=== PATIENT | female | born 1930 | race Caucasian/White ===

== ENCOUNTER 2017-02-16 16:57 | Observation (INO) | payer MEDICARE, OTHER ==
[~2017-02-16] VITALS: Ht 157.5 cm; Wt 56.0 kg
--- NOTE | ~2017-02-16 | CN ---
Consultation Report [facility] [address] [place]. [address] NAME: JÚNIOR MANLEY : [birth year] STATUS : ADM Pre[facility]i PAT#: [id number] AGE: 87 ADM/REG DATE : 02/16/17 MR#: [id number] REPORT SERV DATE: 02/17/17 DICTATED BY: AZAEL PENG DATE: 02/17/17 REPORT STATUS : Draft TRANSCRIBED BY: MODL DATE: 02/17/17 CARDIOVASCULAR CONSULTATION DATE OF CONSULTATION: 02/17/2017 INDICATION: Near syncope/syncope. HISTORY OF PRESENT ILLNESS: Ms. Manley is an 87-year-old woman with a history of coronary artery disease and prior bypass surgery. She has a history of bioprosthetic aortic valve. She has a history of paroxysmal atrial fibrillation and sinus rhythm, on Multaq. She has refused on multiple occasions to take long-term anticoagulation with Coumadin or NOAC despite her elevated CHADS score. The patient at baseline is a poor historian. She evidently had a near syncopal event after getting up to go to the bathroom. When she was going back to bed, she felt very weak and sort of slid to the floor. She does not have any injury in falling. It is not clear to me that she actually passed out, but just became weak. Her evaluation in the emergency room is notable for a borderline elevated troponin, which is not elevated on serial checks. Her EKG shows sinus rhythm with an incomplete left bundle branch block, but no evidence of AV block. PAST MEDICAL HISTORY: 1. Coronary artery disease, status post bypass surgery in 2009, last cardiac catheterization in 2011 with patent grafts, last stress test in 2014. No ischemia. 2. Bioprosthetic aortic valve with last echocardiogram in 2012. 3. Carotid artery stenosis, status post left carotid endarterectomy, chronically occluded right carotid followed at [facility]. 4. History of TIA/stroke. 5. Hypertension. 6. Hypercholesterolemia. 7. Paroxysmal atrial fibrillation after bypass surgery. She has been maintaining sinus, on Multaq. She is resistant to taking long-term Coumadin or NOAC. 8. Renal insufficiency, status post renal artery stenting. SOCIAL HISTORY: She does not smoke or drink alcohol. FAMILY HISTORY: There is no family history of early coronary artery disease. REVIEW OF SYSTEMS: A complete review of systems was obtained as best as could be obtained from the patient given her level of dementia. ALLERGIES: INCLUDE PENICILLIN, METOPROLOL CAUSING STOMACH UPSET, CODEINE, AND COLCHICINE CAUSING NAUSEA AND VOMITING. Consultation Report [facility] [facility] [address]. [address] NAME: JÚNIOR MANLEY : [birth year] STATUS : ADM Preethi PAT#: [id number] AGE: 87 ADM/REG DATE : 02/16/17 MR#: [id number] REPORT SERV DATE: 02/17/17 DICTATED BY: AZAEL PENG DATE: 02/17/17 REPORT STATUS : Draft TRANSCRIBED BY: AROLDO DATE: 02/17/17 MEDICATIONS: Include Norvasc 5 mg daily, Lipitor 20 mg daily, Pepto-Bismol, multivitamins, Multaq 400 mg twice a day, Cymbalta, Uloric, Synthroid, Zestril 20 mg daily, Amitiza, magnesium oxide, Protonix, prednisone eye drops, Zantac, thiamine, and Ultram. PHYSICAL EXAMINATION: VITAL SIGNS: Blood pressure 140/65, heart rate of 78, and respiratory rate of 14. GENERAL: Comfortable in no acute distress. HEENT: Anicteric. No xanthelasma. Lips without cyanosis. NECK: No JVD. Carotids 2+ and symmetric. No carotid bruits. LUNGS: CTA bilaterally. No wheezes or rhonchi. No accessory muscle use. COR: RRR. Normally placed PMI. Normal S1 and S2. No murmurs, rubs or gallops. ABD: Soft, nontender, nondistended. Normal bowel sounds. No abdominal bruits. EXT: No clubbing, cyanosis or edema 2+ and symmetric distal pulses. SKIN: Warm. Dry. No venous stasis changes. MS: No kyphosis. NEURO/PSYCH: Oriented x3. No anxiety or depression. DATA: Laboratory studies: Potassium of 3.9, creatinine of 1.67. Hematocrit of 36. Troponin of 0.05 and 0.08. BNP of 269. EKG: A 12-lead EKG shows sinus rhythm at 69 beats per minute. There is an incomplete left bundle-branch block pattern noted. No evidence of AV block. I reviewed telemetry strips which predominantly show sinus rhythm without evidence of bradycardia overnight. IMPRESSION: This is a near syncopal event in this 87-year-old woman with a history of paroxysmal atrial fibrillation. Given the setting around the time of the patient going to the bathroom and given the limits of her poor history, I think this is likely vasovagal in nature. There has been no evidence of AV block or bradycardia on the monitor. I agree with plans to check an echocardiogram. I think her mildly elevated troponin is consistent with demand ischemia, but not an acute myocardial infarction or [id number]-SA-[id number] elevation myocardial infarction. PLAN: I plan conservative treatment at this point. We could consider an outpatient Holter monitor depending on her inpatient course. AURELIO/AROLDO Azael Peng M.D. / [id number] Consultation Report [address] [place]. [address] NAME: JÚNIOR MANLEY : [birth year] STATUS : ADM [facility] PAT#: [id number] AGE: 87 ADM/REG DATE : 02/16/17 MR#: [id number] REPORT SERV DATE: 02/17/17 DICTATED BY: AZAEL PENG DATE: 02/17/17 REPORT STATUS : Draft TRANSCRIBED BY: AROLDO DATE: 02/17/17 CC: Hien Monahan M.D.
--- NOTE | ~2017-02-16 | DS ---
Discharge Summary [facility] [address] [place]. [address] NAME: JÚNIOR SIDDIQI : [birth year] STATUS : DIS [facility] PAT#: [id number] AGE: 87 ADM/REG DATE : 02/16/17 MR#: [id number] REPORT SERV DATE: 02/19/17 DICTATED BY: NIMESH NAVARRETE DATE: 02/18/17 REPORT STATUS : Draft TRANSCRIBED BY: MODVenancio DATE: 02/18/17 ADMISSION DATE: 02/16/2017 DISCHARGE DATE: 02/18/2017 FINAL DIAGNOSES: 1. Presyncope. 2. Coronary artery disease with history of coronary artery bypass graft. 3. Demand ischemia. 4. Paroxysmal atrial fibrillation and nonsustained ventricular tachycardia. 5. Hypertension. 6. Bioprosthetic aortic valve replacement. 7. Peripheral arterial disease with history of left CA and RA stent. 8. Chronic kidney disease, 3. 9. Hypothyroidism. 10.History of gout. DIAGNOSTIC EXAM: Echocardiogram showing normal left ventricular size and systolic function. EF of 50-55%. No regional wall motion abnormalities. Mild concentric LVH. Mild diastolic dysfunction. Normal right ventricular size and systolic function, mild left atrial enlargement. No thrombus. Stable aortic valve bioprosthesis with mean pressure gradient of 10 mmHg. Chest x-ray: No acute process, no change. HOSPITAL COURSE: Please refer to the H and P done by Dr. Tapia dated on 02/16/2017. Briefly, this is an 87-year-old female who comes in for dizziness. The patient went to the bathroom, then came back, felt like passing out. She did not actually pass out. She was able to lie down on her bed. The patient then went to the emergency room where there was a question that the EMS saw some PVCs versus atrial flutter. The patient in the emergency room was seeing normal sinus rhythm. The patient was then admitted. We did the above tests. We got Dr. Gao, who knows her to consult. The patient meanwhile was also found to have an elevated creatinine at 1.73. We stopped the lisinopril, hydrated her and that improved to a creatinine of 1.25 on discharge. The patient right now feels better. Denies any dizziness, and there was no syncopal episode. Telemetry shows a 5-beat run of nonsustained ventricular tachycardia. Upon discussion with Dr. Azael Gao, the patient will be requiring outpatient Holter, but is safe to be discharged. The patient will now be discharged with the above diagnosis. She is going to be on the following medications: 1. Norvasc 5 mg a day. 2. Aspirin 325 mg a day. 3. Lipitor 20 mg at bedtime. 4. Vitamin D 5000 units a day. 5. Multaq 400 mg twice a day. 6. Cymbalta 30 mg a day. 7. Zantac 300 mg a day. Discharge Summary [facility] [address] [place]. [address] NAME: JÚNIOR SIDDIQI : [birth year] STATUS : DIS Preethi PAT#: [id number] AGE: 87 ADM/REG DATE : 02/16/17 MR#: [id number] REPORT SERV DATE: 02/19/17 DICTATED BY: NIMESH NAVARRETE. DATE: 02/18/17 REPORT STATUS : Draft TRANSCRIBED BY: AORLDO DATE: 02/18/17 8. Uloric 40 mg a day. 9. Synthroid 50 mcg a day. 10.Amitiza 24 mcg twice a day. 11.Protonix 40 mg a day. 12.Pred Forte 1% ophthalmic solution both eyes. 13.Thiamine 100 mg a day. 14.Ultram p.r.n. 15.Magnesium oxide 400 mg twice a day. 16.She will be off lisinopril. The patient will follow up with Sixto Nicolas M.D. in one to two weeks and follow up with Azael Gao M.D. in four to six weeks. This has been explained to the patient, she agreed and understood the plan. [place]/AROLDO Nimesh Navarrete M.D. / [id number] CC: Hien Monahan M.D.
--- NOTE | ~2017-02-16 | HP ---
History And Physical [place] [facility] [id number] [facility] [place]. [address] NAME: JÚNIOR SIDDIQI : [birth year] STATUS : ADM Pre[facility]i PAT#: [id number] AGE: 87 ADM/REG DATE : 02/16/17 MR#: [id number] REPORT SERV DATE: 02/16/17 DICTATED BY: SILVIA LOVELACE DATE: 02/16/17 REPORT STATUS : Draft TRANSCRIBED BY: MODVenancio DATE: 02/16/17 DATE OF ADMISSION: 02/16/2017 HISTORY OF PRESENT ILLNESS: The patient is an extremely pleasant 87-year-old female who presented to [facility] Emergency Room with a complaint of dizziness and presyncopal episode. The patient reported that she basically was in bed, then she got up to go to the bathroom, and then she came back and she said "I am passing out," got dizzy, and basically lied down on the bed. She also said that she did not have any chest pain, she just had a tingling-type sensation in her epigastric area in the middle of her chest, but she denies any chest pain. She denies any abdominal pain. No shortness of breath. No fever. No rash. No headaches. All 14-point review of systems done and negative except for what is stated in the history of present illness. Now, the patient is feeling better. She does not have any tingling sensation in the middle of her chest. In the emergency room, she received normal saline, 150 mL/h, for the last one hour, and she said that she is feeling weak. Also, according to ambulance records, she had sinus tachycardia with some premature ventricular contractions, and basically on further review it looks more like atrial fibrillation, and she had also premature ventricular contractions versus atrial flutter. In the emergency room, the patient converted to sinus rhythm. She was still having occasional premature ventricular contractions. PAST MEDICAL HISTORY: Past medical history is extensive and was collected from medical records. She has history of heart palpitations and fluttering as well as she has history of coronary artery disease, status post coronary artery bypass grafting x4 with aortic valve replacement in 2003; history of paroxysmal atrial fibrillation, on baby aspirin; history of hypertension; dyslipidemia; history of carotid artery stenosis, status post left carotid endarterectomy with chronic occlusion of the right carotid artery; history of renal artery stenosis with stent per [facility]; peripheral vascular disease with previous iliac stents; history of TIA and CVA in the past; history of osteoarthritis and osteoporosis; deconditioning; gout; history of hypothyroidism; dyslipidemia; degenerative disk disease; and chronic lower back pain. PAST SURGICAL HISTORY: As I dictated above, history of coronary artery bypass grafting x4 with aortic valve replacement, history of left carotid endarterectomy, bilateral cataract repair, stents as previously mentioned in bilateral common iliac arteries, and bilateral renal artery stenosis. ALLERGIES: SHE IS ALLERGIC TO SULFA, CODEINE, COLCHICINE, AND METOPROLOL. MEDICATIONS: Home medications are being reviewed by pharmacy, and after clarification of home medications by pharmacy, I am going to address her home medication list. It was written on the previous records that the patient is not on chronic anticoagulation with Coumadin and she takes only baby aspirin, but the pharmacy is going to clarify this. SOCIAL HISTORY: She lives with her younger sister who takes care of her medications; currently, she is not at the bedside. We tried to call her, but she is now driving home. The patient denies tobacco use. No alcohol. No recreational drug use. History And Physical [address] [address] NAME: JÚNIOR SIDDIQI : [birth year] STATUS : ADM Preethi PAT#: [id number] AGE: 87 ADM/REG DATE : 02/16/17 MR#: [id number] REPORT SERV DATE: 02/16/17 DICTATED BY: SILVIA LOVELACE DATE: 02/16/17 REPORT STATUS : Draft TRANSCRIBED BY: MODVenancio DATE: 02/16/17 FAMILY HISTORY: Significant for hypertension and coronary artery disease. Her mother at the age of 56 from heart problems. The father at the age of 37, he was a raise miner, from lung problems. REVIEW OF SYSTEMS: All 14-point review of systems done and negative except for what is stated in the history of present illness. PHYSICAL EXAMINATION: GENERAL: A well-nourished, well-developed female not in acute distress, resting quietly. VITAL SIGNS: Blood pressure 179/72, temperature 97.9, heart rate 61, respiratory rate 16, and oxygen saturation 98% on room air. HEENT: Head atraumatic and normocephalic. Conjunctivae clear. Pupils are equal and reactive to light and accommodation. Extraocular muscles are intact. NECK: Supple. Trachea is midline. No supraclavicular or cervical lymphadenopathy. LUNGS: Clear to auscultation bilaterally. Normal respiratory effort. CARDIOVASCULAR SYSTEM: Regular rate and rhythm. Point of maximal impulse not displaced. I can hear a click of the aortic valve. ABDOMEN: Soft, nontender, and nondistended. Positive normoactive bowel sounds. EXTREMITIES: No clubbing or cyanosis. No edema. There are some brownish changes on the skin of the lower legs. The patient has normal 2+ pedal pulses on both feet. LABORATORY RESULTS: Her sodium was 141, potassium 4.5, chloride 105, carbon dioxide 30, BUN 26, creatinine 1.73, blood sugar 108, magnesium 2.7, and troponin 0.05. Her baseline creatinine fluctuates from 1.2 to 1.3. White count 12.9, hemoglobin 12.4, hematocrit 37.9, and platelet count 214. PT 47.1. INR 1.2. Chest x-ray showed cardiomegaly. Otherwise, no acute cardiopulmonary abnormality, personally reviewed by me. Official radiology report is pending. EKG with normal sinus rhythm with sinus arrhythmia with occasional premature ventricular contractions, left axis deviation, incomplete right bundle-branch block with a ventricular rate of 69. In comparison with the previous EKG which was done in 01/2015, it looks same. ASSESSMENT: 1. This is a very pleasant 87-year-old female who presented status post presyncopal episode with evidence of arrhythmia, looks like atrial flutter/fibrillation with premature ventricular contractions, eventually converted to normal sinus rhythm. 2. Mild dehydration with prerenal azotemia and mild acute kidney injury. 3. Leukocytosis, being afebrile, question possible urinary infection, check urinalysis. 4. History of congestive heart failure with diastolic dysfunction, check echocardiogram. 5. Minimally elevated troponin, check serial troponins. 6. History of carotid artery stenosis on the left, status post carotid endarterectomy, and chronic carotid occlusion on the right. 7. History of aortic valve replacement with history of coronary artery bypass grafting. 8. Possible mild cognitive impairment. History And Physical [address] [place]. [address] NAME: JÚNIOR SIDDIQI : [birth year] STATUS : ADM [facility] PAT#: [id number] AGE: 87 ADM/REG DATE : 02/16/17 MR#: [id number] REPORT SERV DATE: 02/16/17 DICTATED BY: SILVIA LOVELACE DATE: 02/16/17 REPORT STATUS : Draft TRANSCRIBED BY: AROLDO DATE: 02/16/17 PLAN: 1. Admit the patient to cardiac telemetry under observation status. We will monitor her cardiac troponins and order echocardiogram. We will ask the video game designer to evaluate her for arrhythmia, put her on electrolyte protocol, and replace electrolytes if needed; currently, they are in normal range. 2. Leukocytosis without fever, question if this is just stress leukocytosis from dehydration and syncopal episode versus possible UTI. I will order urinalysis on this patient. 3. An echocardiogram also is ordered for the evaluation of the arrhythmia. Thyroid studies are ordered. The patient will receive gentle IV fluid hydration for eight hours, and my partner will see this patient starting tomorrow morning as well as pharmacy will give me her home medications to address. /AROLDO Silvia Lovelace M.D. / [id number] CC: Hien Sesay M.D.
[~2017-02-16 16:57] MED LIST: ASAB PO; ATEN50 PO; B COMPLETE PO; B COMPLEX PO; CARTIA XT120 MG/24 PO; CLONAZEPAM; CORDARONE PO; CYMBALTA30 PO; DCN100 PO; DRONED400 PO; DSS PO; HALF81 PO; HEMATINIC PL PO; KLONO5 PO; KLOR-CON 1010 MEQ PO; KLOR-CON20 MEQ PO; L40 PO; L80 PO; LEVOTHYROXIN50 MCG PO; LIPITOR20 PO; LOP25 PO; LOP50 PO; LOTREL1 CA1 PO; MAGOX4 PO; MOBIC7.5 PO; MULTIPLE VIT PO; NITROSTAT0.4 MG SL; NORV25 PO; NORV5 PO; PEP20 PO; PRILOSEC40 MG PO; PRIN10 PO; PRIN20 PO; PROCRIT40 SC; PROTONIX PO; REFRES1 OP; REFRESH PLUS O0.4 ML OPH; REFRESH1 % OPH; SUCR PO; ULORIC; ULORIC40 MG PO; ULTRAM 50 MG PO; ULTRAM50 PO; VITAMIN B-1 PO; VITAMIN B-100 PO; VITAMIN D1000 UNI1 PO; VITAMIN D31000 UNIT PO; VITD PO; VYTORIN 10/20 T1 TAB PO; VYTORIN 10/40 T1 TAB PO; VYTORIN 10/80 T1 TAB PO; X25 PO; Z100 PO; ZANTAC150 MG PO; ZANTAC300 MG PO; [UNRECOGNIZED DRUG - OTHER] OP; [UNRECOGNIZED DRUG - OTHER] PO
[2017-02-16 20:22] LABS: BASOPHILS 0.2 %; BASOPHILS ABSOLUTE 0.03 10/3/uL (0.0-0.16); EOSINOPHILS 0.2 %; EOSINOPHILS ABSOLUTE 0.03 10/3/uL (0.0-0.53); ER CBC TAT 0 Hrs 03 Mins; HEMATOCRIT 37.9 % (36.0-48.0); HEMOGLOBIN 12.4 g/dL (12.0-16.0); IMMATURE GRANULOCYTES 0.2 %; IMMATURE GRANULOCYTES ABSOLUTE 0.03 10/3/uL (0.0-0.11); LYMPHOCYTES 5.9 %; LYMPHOCYTES ABSOLUTE 0.76 10/3/uL (0.67-4.30); MANUAL DIFF NO %; MEAN CORPUS HGB CONC 32.7 g/dL (32.0-36.0); MEAN CORPUSCULAR HEMOGLOB 30.7 pg (26.0-34.0); MEAN CORPUSCULAR VOLUME 93.8 fL (80-100); MEAN PLATELET VOLUME 8.7 fL (9.2-13.0); MONOCYTES 6.4 %; MONOCYTES ABSOLUTE 0.82 10/3/uL (0.21-1.20); NEUTROPHILS 87.1 %; NEUTROPHILS ABSOLUTE 11.19 10/3/uL (2.02-8.40); PLATELET COUNT 214 10/3/uL (150-400); RBC DISTRIBUTION WIDTH 15.1 % (12.0-16.0); RED CELL COUNT 4.04 10/6/uL (4.0-5.6); WHITE BLOOD CELLS 12.9 10/3/uL (4.5-10.5)
[2017-02-16 20:31] LABS: INTERNATIONAL NORMAL RATI 1.2 UNITS (-); PROTIME (NOT ORD) 14.7 SEC (12.0-14.5)
[2017-02-16 20:32] LABS: PARTIAL THROMBO TIME 34.1 SEC (22.5-37.2)
[2017-02-16 20:38] LABS: BUN (BLOOD UREA NITROGEN) 26 MG/DL (6-23); CALCIUM, SERUM 8.8 MG/DL (8.5-10.4); CHLORIDE, SERUM 105 MMOL/L (96-112); CO2 (CARBON DIOXIDE) 30 MMOL/L (24-34); CREATININE 1.73 MG/DL (0.55-1.02); GFR AFRICAN AMERICAN 30 ML/MIN (>=60); GFR NON AFRICAN AMERICAN 26 ML/MIN (>=60); POTASSIUM, SERUM 4.5 MMOL/L (3.5-5.3); SODIUM, SERUM 141 MMOL/L (135-148)
[2017-02-16 20:39] LABS: CHEST PAIN PROFILE TAT 0 Hrs 20 Mins; GLUCOSE, SERUM 108 MG/DL (60-99); TROPONIN I 0.05 NG/ML (<0.05)
[2017-02-16] MEDS ORDERED: LIPITOR20 PO (21:24)
[2017-02-16] MEDS ORDERED: AMITIZA24 PO (21:24)
[2017-02-16] MEDS ORDERED: PREDFORTE OPH (21:25)
[2017-02-16] MEDS ORDERED: PROTONIX PO (21:25)
[2017-02-16] MEDS ORDERED: DRONED400 PO (21:25)
[2017-02-16] MEDS ORDERED: SYN.05 PO (21:25)
[2017-02-16] MEDS ORDERED: ZESTRIL20 MG PO (21:26)
[2017-02-16] MEDS ORDERED: ULTRAM50 PO ×2 (21:26→23:07)
[2017-02-16] MEDS ORDERED: CYMBALTA30 PO (21:26)
[2017-02-16] MEDS ORDERED: ULORIC40 MG PO (21:26)
[2017-02-16] MEDS ORDERED: NORV5 PO (21:28)
[2017-02-16] MEDS ORDERED: MAGOX4 PO (23:06)
[2017-02-16] MEDS ORDERED: VITAMIN D31000 UNIT PO (23:08)
[2017-02-16] MEDS ORDERED: ZANTAC300 MG PO (23:08)
[2017-02-16] MEDS ORDERED: B1100 PO (23:09)
[2017-02-16] MEDS ORDERED: REFRESH OPTIVE OPH (23:09)
[2017-02-16] MEDS ORDERED: PEPTO BISMOL LIQ1 ML PO (23:10)
[2017-02-17 01:25] LABS: ASCORBIC ACID (UR NOT ORDER) NEG (NEG); BILIRUBIN, URINE NEGATIVE (NEG); ER URINALYSIS TAT 0 Hrs 00 Mins; KETONE, URINE NEGATIVE (NEG); LEUKOCYTE ESTERASE(NOT OR NEG (NEG); NITRITE (URINE) NEG (NEG); WBC (NOT ORDERED) (RFLEX) < 1 (0-5)
[2017-02-17 01:44] LABS: BASOPHILS 0.2 %; BASOPHILS ABSOLUTE 0.02 10/3/uL (0.0-0.16); EOSINOPHILS 0.5 %; EOSINOPHILS ABSOLUTE 0.04 10/3/uL (0.0-0.53); HEMATOCRIT 36.3 % (36.0-48.0); HEMOGLOBIN 12.1 g/dL (12.0-16.0); IMMATURE GRANULOCYTES 0.1 %; IMMATURE GRANULOCYTES ABSOLUTE 0.01 10/3/uL (0.0-0.11); LYMPHOCYTES 9.3 %; LYMPHOCYTES ABSOLUTE 0.79 10/3/uL (0.67-4.30); MANUAL DIFF NO %; MEAN CORPUS HGB CONC 33.3 g/dL (32.0-36.0); MEAN CORPUSCULAR HEMOGLOB 31.2 pg (26.0-34.0); MEAN CORPUSCULAR VOLUME 93.6 fL (80-100); MEAN PLATELET VOLUME 8.8 fL (9.2-13.0); MONOCYTES 5.5 %; MONOCYTES ABSOLUTE 0.47 10/3/uL (0.21-1.20); NEUTROPHILS 84.4 %; NEUTROPHILS ABSOLUTE 7.18 10/3/uL (2.02-8.40); PLATELET COUNT 220 10/3/uL (150-400); RED CELL COUNT 3.88 10/6/uL (4.0-5.6); WHITE BLOOD CELLS 8.5 10/3/uL (4.5-10.5)
[2017-02-17 02:05] LABS: B NATRIURETIC PEPTIDE (BNP) 369.6 PG/ML (< 100.0)
[2017-02-17 02:08] LABS: BUN (BLOOD UREA NITROGEN) 23 MG/DL (6-23); CALCIUM, SERUM 8.4 MG/DL (8.5-10.4); CHLORIDE, SERUM 106 MMOL/L (96-112); CO2 (CARBON DIOXIDE) 29 MMOL/L (24-34); CREATININE 1.67 MG/DL (0.55-1.02); GFR AFRICAN AMERICAN 31 ML/MIN (>=60); GFR NON AFRICAN AMERICAN 27 ML/MIN (>=60); POTASSIUM, SERUM 3.9 MMOL/L (3.5-5.3); SODIUM, SERUM 142 MMOL/L (135-148)
[2017-02-17 02:09] LABS: FREE T4 1.17 NG/DL (0.76-1.46)
[2017-02-17 02:11] LABS: CK-MB 1.9 NG/ML; CPK 73 U/L (0-200); GLUCOSE, SERUM 144 MG/DL (60-99); TROPONIN I 0.08 NG/ML (<0.05)
[2017-02-17 07:55] LABS: GLYCOHEMOGLOBIN (HbA1c) 5.4 % (4.7-6.1)
[2017-02-18 05:18] LABS: BUN (BLOOD UREA NITROGEN) 19 MG/DL (6-23); CALCIUM, SERUM 7.8 MG/DL (8.5-10.4); CHLORIDE, SERUM 109 MMOL/L (96-112); CO2 (CARBON DIOXIDE) 25 MMOL/L (24-34); CREATININE 1.25 MG/DL (0.55-1.02); GFR AFRICAN AMERICAN 44 ML/MIN (>=60); GFR NON AFRICAN AMERICAN 38 ML/MIN (>=60); GLUCOSE, SERUM 72 MG/DL (60-99); POTASSIUM, SERUM 4.1 MMOL/L (3.5-5.3); SODIUM, SERUM 140 MMOL/L (135-148)
== END 2017-02-18 17:34 | disposition home or self-care (01) ==
LOC: ER 16:57 → EDBD 17:25 → ER 17:25 → 5NO 22:20 → EDBD 02-18 17:34
PROVIDERS: Emergency Medicine; Hospitalist; Internal Medicine
DX: R55 Syncope and collapse (principal); I25.10 Atherosclerotic heart disease of native coronary artery without angina pectoris; I24.8 Other forms of acute ischemic heart disease; I12.9 Hypertensive chronic kidney disease with stage 1 through stage 4 chronic kidney disease, or unspecified chronic kidney disease; N18.3 Chronic kidney disease, stage 3 (moderate); I73.9 Peripheral vascular disease, unspecified; E03.9 Hypothyroidism, unspecified; E86.0 Dehydration; N17.9 Acute kidney failure, unspecified; D72.829 Elevated white blood cell count, unspecified; I48.0 Paroxysmal atrial fibrillation; E78.00 Pure hypercholesterolemia, unspecified; R79.89 Other specified abnormal findings of blood chemistry; Z95.2 Presence of prosthetic heart valve; Z79.52 Long term (current) use of systemic steroids; Z79.82 Long term (current) use of aspirin; Z95.1 Presence of aortocoronary bypass graft; Z79.899 Other long term (current) drug therapy; Z88.2 Allergy status to sulfonamides; Z88.5 Allergy status to narcotic agent; Z88.8 Allergy status to other drugs, medicaments and biological substances; Z88.0 Allergy status to penicillin; Z98.41 Cataract extraction status, right eye; Z98.42 Cataract extraction status, left eye; Z98.890 Other specified postprocedural states
CPT/HCPCS: 71010; 80048; 81001; 82550; 82553; 82962; 83036; 83735; 83880; 84439; 84443; 84484; 85025; 85610; 85730; 93005; 93225; 96374; 97161-GP; 99285; A9270-GY; C8929; G0378; G8978-CI-GP; G8979-CI-GP; G8980-CI-GP; J2405; Q9957